=== PATIENT | female | born 1990 | race American Indian/Alaskan Native ===

== ENCOUNTER 2020-06-04 19:46 | Emergency (ER) | payer SELFPAY ==
[2020-06-04 21:03] VITALS: BP 114/63
[2020-06-04] MEDS ORDERED: diphenhydrAMINE 25 MG CAP PO ONE (21:32)
[2020-06-04] MEDS ORDERED: dexAMETHasone 20 MG/5 ML VIAL IM ONE (21:32)
[2020-06-04] MEDS ORDERED: FAMOTIDINE 20 MG TAB PO ONE (21:32)
--- NOTE | 2020-06-04 22:20 | Emergency Department Report ---
ED Allergic Reaction HPI - General Chief complaint: Allergic Reaction Stated complaint: ALLERGIC REACTION;SOB Time Seen by Provider: 06/04/20 21:25 Source: patient Mode of arrival: Ambulatory Limitations: No Limitations - History of Present Illness Initial Comments: pt is a 29 yo female who presents to the ED with c/o allergic reaction that occurred one hour [employer]. pt states she was at the nail salon and they sprayed something onto her nail from a spray bottle right before she was going to leave. she states a little while after while she was in her car she broke out in diffuse urticaria. she states that she had itching all over. she states she took one benadryl tablet, she states that after the benadryl tablet her urticaria significantly improved and she just has a small amount left to the face. she denies any facial swelling, tongue swelling, difficulty swallowing, difficulty breathing, sensation of throat closing. she denies any known allergies. she denies anything else that is new except for the spray. no medication allergies. [facility] april - Related Data Previous Rx's Medication Instructions Recorded Last Taken Type Famotidine [Pepcid] 40 mg PO QHS #10 tablet 06/04/20 Unknown Rx Prednisone [predniSONE 10 mg 10 mg PO .TAPER #1 tab.ds.pk 06/04/20 Unknown Rx (6-Day Pack, 21 Tabs)] diphenhydrAMINE [Benadryl CAP] 25 mg PO Q8HR PRN #10 capsule 06/04/20 Unknown Rx Allergies Allergy/AdvReac Type Severity Reaction Status Date / Time No Known Allergies Allergy Unverified 12/29/12 16:55 ED Review of Systems ROS: Stated complaint: ALLERGIC REACTION;SOB Other details as noted in HPI Comment: All other systems reviewed and negative ED Past Medical Hx - Past Medical History Previous Medical History?: No - Surgical History Past Surgical History?: Yes Additional Surgical History: Tonsillectomy - Social History Smoking Status: Never Smoker Substance Use Type: None - Medications Home Medications: Home Medications Medication Instructions Recorded Confirmed Last Taken Type Famotidine [Pepcid] 40 mg PO QHS #10 tablet 06/04/20 Unknown Rx Prednisone [predniSONE 10 mg 10 mg PO .TAPER #1 tab.ds.pk 06/04/20 Unknown Rx (6-Day Pack, 21 Tabs)] diphenhydrAMINE [Benadryl CAP] 25 mg PO Q8HR PRN #10 capsule 06/04/20 Unknown Rx ED Physical Exam - General Limitations: No Limitations General appearance: alert, in no apparent distress - Head Head exam: Present: atraumatic, normocephalic - Eye Eye exam: Present: normal appearance - ENT ENT exam: Present: normal orophraynx, mucous membranes moist, other (no a ngioedema, no tongue edema, uvula is midline, no uvular edema or deviation) - Respiratory Respiratory exam: Present: normal lung sounds bilaterally. Absent: respiratory distress, wheezes, rales, rhonchi, stridor, chest wall tenderness, accessory muscle use, decreased breath sounds, prolonged expiratory - Cardiovascular Cardiovascular Exam: Present: regular rate, normal rhythm, normal heart sounds. Absent: systolic murmur, diastolic murmur, rubs, gallop - Neurological Exam Neurological exam: Present: alert, oriented X3 - Psychiatric Psychiatric exam: Present: normal affect, normal mood - Skin Skin exam: Present: warm, dry, urticaria (a couple of urticaria surrounding the mouth, none present to abdomen, chest, arms, legs or back) ED Course Vital Signs 06/04/20 06/04/20 21:00 21:44 Temperature 98.1 F Pulse Rate 75 Respiratory 18 17 Rate Blood Pressure 114/63 O2 Sat by Pulse 100 97 Oximetry ED Medical Decision Making - Medical Decision Making pt is a 29 yo female who presents to the ED with c/o allergic reaction that occurred one hour [employer]. pt states she was at the nail salon and they sprayed something onto her nail from a spray bottle right before she was going to leave. she states a little while after while she was in her car she broke out in diffuse urticaria. she states that she had itching all over. she states she took one benadryl tablet, she states that after the benadryl tablet her urticaria significantly improved and she just has a small amount left to the face. she denies any facial swelling, tongue swelling, difficulty swallowing, difficulty breathing, sensation of throat closing. she denies any known allergies. she denies anything else that is new except for the spray. no medication allergies. [facility] end april. Vitals are normal. On exam:a couple of urticaria surrounding the mouth, none present to abdomen, chest, arms, legs or back. No signs of angioedema or anaphylaxis. Patient states that symptoms were already improving after 1 Benadryl. Patient given IM dexamethasone, 25 mg Benadryl, oral Pepcid. After medications symptoms have significantly improved, she states that she no longer has any itching, urticaria is improving. Patient given prescription for prednisone, Pepcid, Benadryl. Discussed very strict return precautions in detail with patient. Advised patient please take medication as prescribed. do not drive or operate heavy machinery while taking benadryl due to drowsiness. follow up with a primary care doctor. please avoid triggers for your reaction. return to the emergency room immediately for any new or worsening symptoms. Critical care attestation.: If time is entered above; I have spent that time in minutes in the direct care of this critically ill patient, excluding procedure time. ED Disposition Clinical Impression: Urticaria Disposition: DC- TO HOME OR SELFCARE Is pt being admited?: No Does the pt Need Aspirin: No Condition: Stable Instructions: Hives Additional Instructions: please take medication as prescribed. do not drive or operate heavy machinery while taking benadryl due to drowsiness. follow up with a primary care doctor. please avoid triggers for your reaction. return to the emergency room immediately for any new or worsening symptoms. Prescriptions: Famotidine [Pepcid] 40 mg PO QHS #10 tablet diphenhydrAMINE [Benadryl CAP] 25 mg PO Q8HR PRN #10 capsule PRN Reason: rash/itching Prednisone [predniSONE 10 mg (6-Day Pack, 21 Tabs)] 10 mg PO .TAPER #1 tab.ds.pk Referrals: MARCELLE KUMAR MD [Primary Care Provider] - 2-3 Days MIGEL SALAZAR MD [Staff Physician] - 2-3 Days [facility] [Provider Group] - 2-3 Days Time of Disposition: 22:17 Print Language: SYRIAC
== END 2020-06-04 22:00 | disposition home or self-care (01) ==
LOC: ED 19:46
DX: L50.9 Urticaria, unspecified (principal); Z98.890 Other specified postprocedural states; Z79.899 Other long term (current) drug therapy
CPT/HCPCS: 96372; 99282; J1100